=== PATIENT | male | born 1985 | race Caucasian/White ===

== ENCOUNTER 2021-01-15 18:30 | Emergency (ER) | payer OTHER ==
[~2021-01-15] VITALS: Ht 177.8 cm; Wt 115.2 kg
[2021-01-15 18:57] VITALS: Ht 177.8 cm; Wt 115.2 kg
== END 2021-01-15 20:01 | disposition left against medical advice (07) ==
LOC: ED 18:30
DX: Z53.21 Procedure and treatment not carried out due to patient leaving prior to being seen by health care provider (principal)